=== PATIENT | male | born 1965 | race Caucasian/White ===

== ENCOUNTER 2022-10-21 09:37 | Emergency (ER) | payer BC, SELFPAY ==
[2022-10-21 09:41] VITALS: BP 158/91; PULSE 77; RESP 18; TEMP 36.9; O2SAT 98
--- NOTE | 2022-10-21 10:00 | DI.CT_ITS ---
Exam(s) CT HEAD WO EXAM: CT HEAD WO CLINICAL HISTORY: trauma frontal. TECHNIQUE: Imaging Protocol: Axial computed tomography images with coronal and sagittal reformatted images were created and reviewed COMPARISON: No exams were available for comparison FINDINGS: Ventricles and Extra axial spaces: Normal in size and morphology for the patient's age. Hemorrhage: None. Cerebral parenchyma: Normal. Midline shift: None. Brainstem/Cerebellum: Normal. Calvarium: Normal. Visualized Paranasal sinuses/Mastoids: Clear. Soft Tissues: There is a laceration of the scalp in the midline of the forehead. No radiopaque forei gn bodies are seen. IMPRESSION: 1. No acute intracranial process. 2. Findings were discussed with the emergency department at 11:13 a.m. on 10/21/2022. RADIATION DOSE DELIVERED: Total DLP DATA REPOSITORY: All CT scans at this facility are submitted to the National Radiology Data Registry (NRDR) Dose Index Registry (DIR) with the [employer] ([employer]). RADIATION OPTIMIZATION: All CT scans at this facility use at least one of these dose optimization te chniques: automated exposure control; mA and/or kV adjustment per patient size (includes targeted exa ms where dose is matched to clinical indication); or iterative reconstruction.
--- NOTE | 2022-10-21 10:04 | ED.GENADUL_ITS ---
Discharge Plan Disposition Patient Disposition: Home Condition: Stable Discharge Details Clinical Impression: Facial laceration Primary Care Provider: None,None ED Provider: Ever Marinelli Home Meds and New Rx's Prescriptions: No Action No Known Home Meds Discharge Instructions Instructions: Facial Laceration (ED) Additional Instructions: Keep wound clean and dry with sterile dressing over the next 2 days. Change dressing daily thereafter. Be sure to use sterile dressing. Monitor for signs of infection including increased warmth, redness, swelling, discharge or pain. Please contact your primary care physician to arrange follow-up. Sutures need to be removed in 5 days. Return to the ER immediately for any worsening or new concerning symptoms. Medical Decision Making 1030 --57-year-old male here with frontal head trauma, deep vertical facial laceration. Patient mentating well but was dazed after the impact. Consider acute life-threatening intracranial traumatic hemorrhage versus skull fracture. Plan to obtain CT of the head Let applied for analgesia. Plan for primary closure after irrigation. -- CT head was negative. Wound irrigated and closed. Usual customary discharge instructions were reviewed. HPI General Mode of arrival: ambulatory . Date/Time Provider Initiated Documentation: 10/21/22 09:39 . Limitations to Documentation: no limitations . Information obtained by: patient . HPI Narrative: 57-year-old male presents with chief complaint of laceration. Patient notes he tripped and fell and impacted his head on a step just prior to arrival. He sustained laceration to his forehead that was initially bleeding. Bleeding stopped. Patient states he has no headache at this time but did feel a bit dazed after the injury. No associated nausea or vomiting. Does not think he lost consciousness. No neck pain. No numbness or tingling. No visual changes. Related Data Home Medications Medication Instructions Recorded Confirmed Unknown [No Known Home Meds] 10/21/22 10/21/22 Allergies Allergy/AdvReac Type Severity Reaction Status Date / Time No Known Allergies Allergy Unverified 10/21/22 09:44 General Stated Complaint: Laceration EULA: 4 Review of Systems All systems reviewed & are unremarkable except as noted in HPI and below Integumentary/Breasts Skin/Breast: Reports as per HPI PFSH All Active Problems Facial laceration (Acute) Social History Smoking/Tobacco Use Status: Never Smoking risk assessment performed?: Yes Alcohol Intake: never Drug use: Never Substance use type: does not use Do you feel safe at home: Yes Do you feel safe in your relationship?: Yes Exam Const General: cooperative and no acute distress HENMT Head: normocephalic, no Salazar's sign, laceration (frontal forehead vertical ) and no raccoon eyes Ears: TM's normal bilaterally General nose exam: external nose normal Mouth: moist mucous membranes Throat: posterior oropharynx normal Eyes Conjunctivae: normal conjunctivae Sclera: normal sclerae Pupils: PERRL EOM: EOM intact bilaterally Neck Neck: trachea midline and supple Resp Auscultation: clear to auscultation bilaterally, no rales, no rhonchi and no wheezes Cardio Rate: regular rate and not tachycardic Rhythm: regular rhythm GI Palpation: soft, not firm, no guarding, no masses, not rigid and nontender Back/Spine/Pelvis Cervical Spine: cervical ROM normal and No cervical spinal tenderness Thoracic/Lumbar Spine: No thoracic spinal tenderness Neuro General: patient alert, patient awake, patient oriented x3 and tone normal Extrem General: no edema Psych Appearance: grossly normal Mental Status: mental status grossly normal Course Vital Signs Vital signs: Vital Signs Temperature 36.9 C 10/21/22 09:41 Pulse 77 10/21/22 09:41 Respiratory Rate 18 10/21/22 09:41 Blood Pressure 158/91 H 10/21/22 09:41 Pulse Oximetry 98 10/21/22 09:41 Temperature 36.9 C 10/21/22 09:41 Temperature Source Skin 10/21/22 09:41 Pulse 77 10/21/22 09:41 Respiratory Rate 18 10/21/22 09:41 Respiratory Effort Normal 10/21/22 09:45 Blood Pressure 158/91 H 10/21/22 09:41 Blood Pressure Position Sitting 10/21/22 09:41 Pulse Oximetry 98 10/21/22 09:41 Oxygen Delivery Method Room Air 10/21/22 09:41 Oxygen Flow Rate 0 10/21/22 09:41 Pain Level 7 10/21/22 09:41 Procedures Laceration Laceration 1: Site: face Size (cm): 4.5 Description: irregular Depth: simple, single layer Local Anesthetic: Lidocaine 1% and with Epi Pre-repair: wound explored, irrigated extensively and deep structures intact Skin layer closed with: other (prolene) Size (cm): 6-0 Number of sutures: 11 Technique: simple, interrupted Subcutaneous layer closed with: other (monocryl) Size: 6-0 Number of sutures: 2 Technique: simple, interrupted
[2022-10-21] MEDS: Lidocaine/Epinephri/Tetracaine Topical Gel 3 ML TP (10:23)
[2022-10-21] MEDS: Lidocaine 1% Pres-Free W/EPI 1/200,000 30 ML VIAL IJ (11:19)
[2022-10-21 13:00] VITALS: BP 170/98; PULSE 76; RESP 16; O2SAT 95
--- NOTE | 2022-10-23 11:29 | NUR.NOTE ---
Nursing Note: in chart for suture remove for dr. pappas
== END 2022-10-21 13:08 | disposition home or self-care (01) ==
PROVIDERS: Emergency Provider Student in an Organized Health Care Education/Training Program
DX: W01.198A Fall on same level from slipping, tripping and stumbling with subsequent striking against other object, initial encounter; S01.81XA Laceration without foreign body of other part of head, initial encounter; Y93.89 Activity, other specified; Y92.89 Other specified places as the place of occurrence of the external cause; Y99.9 Unspecified external cause status
CPT/HCPCS: 12013; 99284; 70450; 99283